=== PATIENT | female | born 1970 | race African-American/Black ===

== ENCOUNTER 2017-01-16 19:39 | Emergency (ER) | payer OTHER ==
[~2017-01-16] VITALS: Ht 180.3 cm; Wt 105.0 kg
[2017-01-16] MEDS ORDERED: KETOROLAC 60MG/2ML VIAL IM ONE (20:15)
[2017-01-17 00:06] VITALS: BP 156/93
== END 2017-01-17 00:14 | disposition home or self-care (01) ==
LOC: ER 19:39
DX: M25.512 Pain in left shoulder (principal); M54.2 Cervicalgia; M25.561 Pain in right knee; M25.522 Pain in left elbow; Z98.890 Other specified postprocedural states; Z88.3 Allergy status to other anti-infective agents; Z88.2 Allergy status to sulfonamides; V43.52XA Car driver injured in collision with other type car in traffic accident, initial encounter; Y93.89 Activity, other specified; Y92.488 Other paved roadways as the place of occurrence of the external cause
CPT/HCPCS: 73030; 73080; 73562; 81025; 96372; 99284; J1885; Z7610

== ENCOUNTER 2017-02-11 22:50 | Emergency (ER) | payer OTHER ==
[~2017-02-11] VITALS: Ht 180.3 cm; Wt 109.0 kg
[2017-02-11 22:50] VITALS: BP 153/93
== END 2017-02-12 02:24 | disposition left against medical advice (07) ==
LOC: ER 22:56
DX: Z53.21 Procedure and treatment not carried out due to patient leaving prior to being seen by health care provider (principal)

== ENCOUNTER 2021-11-20 12:04 | Emergency (ER) | payer OTHER ==
[~2021-11-20] VITALS: Ht 172.7 cm; Wt 114.0 kg
[2021-11-20 12:24] VITALS: BP 124/67
[2021-11-20] MEDS ORDERED: ACETAMINOPHEN 325MG TABLET PO NR (12:30)
[2021-11-20] MEDS ORDERED: GABAPENTIN 100MG CAPSULE PO NR (12:30)
[2021-11-20 15:48] LABS: CHLORIDE 107 mEq/L (98-107)
[2021-11-20] MEDS ORDERED: GABA-529 MT (15:56)
[2021-11-20] MEDS ORDERED: ACET-2708 MT (15:56)
[2021-11-20 16:00] LABS: CREATINE KINASE 90 IU/L (26-192); ETHANOL BLOOD < 10 mg/dL; PHOSPHORUS 2.7 mg/dL (2.5-4.9)
[2021-11-20 16:38] LABS: EOSINOPHILS % 2.1 % (0.0-5.0); HEMOGLOBIN. 11.1 g/dL (12.0-16.0); LYMPHOCYTES % 40.6 % (20.0-50.0); MEAN CORPUSCULAR HEMOGLOBIN 27.1 pg (28.0-32.0); MEAN CORPUSCULAR VOLUME 80.4 fL (81.0-99.0); MEAN PLATELET VOLUME 8.8 fl (7.4-10.4); MONOCYTES % 10.7 % (2.0-8.0); NEUTROPHILS % 45.6 % (40.0-76.0); PLATELET 224 x1000/uL (130-400); RED CELL DISTRIBUTION WIDTH 14.7 % (11.6-14.6)
[2021-11-20 16:47] LABS: CLARITY URINE CLEAR (CLEAR); COLOR URINE YELLOW (YELLOW); KETONES URINE NEGATIVE (NEGATIVE); LEUKOCYTE ESTERASE URINE NEGATIVE (NEGATIVE); NITRITE URINE NEGATIVE (NEGATIVE); OCCULT BLOOD URINE NEGATIVE (NEGATIVE); PH URINE 7.5 (4.5-8.0); PROTEIN URINE NEGATIVE (NEGATIVE); SPECIFIC GRAVITY URINE 1.012 (1.005-1.030)
[2021-11-20 17:12] LABS: *AMPHETAMINES SCREEN URINE NEGATIVE (NEGATIVE); *BARBITURATES SCREEN URINE NEGATIVE (NEGATIVE); *BENZODIAZEPINES SCREEN URINE NEGATIVE (NEGATIVE); *COCAINE SCREEN URINE NEGATIVE (NEGATIVE); CANNABINOID URINE SCREEN NEGATIVE (NEGATIVE); METHADONE URINE SCREEN NEGATIVE (NEGATIVE); OPIATES URINE SCREEN NEGATIVE (NEGATIVE); PHENCYCLIDINE URINE SCREEN NEGATIVE (NEGATIVE)
== END 2021-11-20 18:31 | disposition home or self-care (01) ==
LOC: ER 12:04
DX: M79.10 Myalgia, unspecified site (principal); R20.0 Anesthesia of skin; I10 Essential (primary) hypertension; E28.2 Polycystic ovarian syndrome; E78.00 Pure hypercholesterolemia, unspecified; Q56.0 Hermaphroditism, not elsewhere classified; Z90.710 Acquired absence of both cervix and uterus; Z88.3 Allergy status to other anti-infective agents; Z88.2 Allergy status to sulfonamides
CPT/HCPCS: 36415; 70450; 80053; 80305; 80320; 81003; 82550; 83690; 83735; 84100; 85025; 93005; 93970; 99285; Z7610; G0480

== ENCOUNTER 2024-06-13 09:51 | Emergency (ER) | payer OTHER ==
[~2024-06-13] VITALS: Ht 180.3 cm; Wt 118.0 kg
[~2024-06-13 09:51] MED LIST: ACET-2708 MT; AMLO5TAB88 PO; ATOR20TA65 PO; DOCU-138 PO; FAMO20TA8 PO; GABA-529 MT; LEVO750T68 MT; METR-167 MT; OMEG-119 MT; [UNRECOGNIZED DRUG - CODE] TD
[2024-06-13 09:58] VITALS: TEMP 36.9; O2SAT 98
[2024-06-13 11:56] VITALS: BP 132/72; PULSE 96; RESP 18
[2024-06-13] MEDS: IBUPROFEN 600MG TABLET PO ONE (11:56)
[2024-06-13] MEDS: HYDROCODONE/ACETAMINOPHEN 5/325MG TABLET PO ONE (11:56)
[2024-06-13] MEDS ORDERED: IBUP-2029 MT (12:00)
== END 2024-06-13 12:06 | disposition home or self-care (01) ==
LOC: ER 09:51
DX: M25.562 Pain in left knee (principal); M25.561 Pain in right knee; I10 Essential (primary) hypertension; Z79.899 Other long term (current) drug therapy; Z88.1 Allergy status to other antibiotic agents; Z88.2 Allergy status to sulfonamides
CPT/HCPCS: 73560; 99283